=== PATIENT | female | born 1950 | race Caucasian/White ===

== ENCOUNTER 2019-06-20 13:20 | Outpatient (CLI) | payer MEDICARE, SELFPAY ==
--- NOTE | 2019-06-20 13:28 | USCV_ITS ---
Judith Wylie Age: 68 Gender: F : 1950 Exam Date: 06/20/2019 13:38 Ordering Phys: Unruly Kenyon MD ([email or web address]) Technologist: Emily Melendez Exam Location: [facility] [place] Indication: STENOSIS Risk Factors: Previous Vascular Surgery: Right Brachial BP: / Left Brachial BP: / Right Left Velocity (cm/s) Spectral Plaque Velocity (cm/s) Spectral Plaque Syst/Diast Broadening Syst/Diast Broadening 101.40/19.80 Prox CCA 101.40/ 23.20 80.50/ 19.80 Mid CCA 91.50 / 26.50 97.00/ 23.20 Distal CCA 91.50 / 30.90 108.10/30.90 Prox ICA 129.50/ 48.60 135.60/36.40 Mid ICA 138.50/ 43.20 146.60/41.90 Distal ICA 154.70/ 54.00 131.20 ECA 144.40 1.82 ICA/CCA 1.69 Antegrade Vertebral Antegrade 80.50/ 22.10 cm/s 91.70/ 23.40 cm/s Tri Subclavian Tri FINDINGS Moderate to heavy heterogeneous plaques at the bifurcation and internal carotid artery on the right side Moderate to heavy heterogeneous plaques of the left bifurcation and proximal internal carotid artery Antegrade flow in the vertebral arteries bilaterally Normal Doppler flow velocities in the external carotid arteries bilaterally Antegrade flow in the vertebral arteries bilaterally CONCLUSIONS Moderate to heavy heterogeneous plaques at the bifurcation and internal carotid artery on the left side with velocity elevation consistent with 50-79% stenosis. Moderate to heavy heterogeneous plaques at the bifurcation and internal carotid artery on the right side with velocity elevation consistent with 16-49% stenosis. Intimal thickening in the common carotid arteries bilaterally Compared to the study from 12/05/2018, there is some worsening of the stenosis on the right side, based on the flow velocity measurements Dr Pam Liu MD [facility] (Electronically Signed) Final Date: 20 June 2019 17:47 S
== END 2019-06-20 13:21 | disposition home or self-care (01) ==
LOC: US 13:22
PROVIDERS: Family Provider Electrodiagnostic Medicine; PCP Electrodiagnostic Medicine; Visit Provider Internal Medicine Cardiovascular Disease
DX: I65.23 Occlusion and stenosis of bilateral carotid arteries (principal)
CPT/HCPCS: 93880

== ENCOUNTER 2019-11-12 15:21 | Outpatient (CLI) | payer MEDICARE, SELFPAY ==
--- NOTE | 2019-11-12 15:28 | XR_ITS ---
WS: [id number] Bone mineral density performed on a [facility], 11/12/2019 Clinical data: [facility] Findings: The first 4 lumbar vertebral bodies demonstrated the bone mineral density of 0.922 g/cm2 for a young adult T score of -2.1. Measurement of the left hip reveals a bone mineral density of 0.748 g/cm2 with a young adult T score of -2.1. Measurement of the right hip reveals the bone mineral density of 0.783 g/cm2 for young adult T score of -1.8. XR/XR DEXA axial skeleton* [id number] Impression: Osteopenia of the lumbar spine and both hips.
== END 2019-11-12 15:22 | disposition home or self-care (01) ==
LOC: RADWPI 15:25
PROVIDERS: Family Provider Electrodiagnostic Medicine; PCP Electrodiagnostic Medicine; Visit Provider Electrodiagnostic Medicine
DX: Z13.820 Encounter for screening for osteoporosis (principal); M85.89 Other specified disorders of bone density and structure, multiple sites
CPT/HCPCS: 77080

== ENCOUNTER 2019-12-01 09:01 | Outpatient (CLI) | payer MEDICARE, SELFPAY ==
--- NOTE | 2019-12-01 09:30 | USCV_ITS ---
Judith Wylie Age: 69 Gender: F : 1950 Exam Date: 12/01/2019 09:17 Ordering Phys: Unruly Kenyon MD ([email or web address]) Technologist: Deann Espino Exam Location: [facility] [place] Indication: 6 MONTH F/U Risk Factors: Previous Vascular Surgery: None Right Brachial BP: / Left Brachial BP: / Right Left Velocity (cm/s) Spectral Plaque Velocity (cm/s) Spectral Plaque Syst/Diast Broadening Syst/Diast Broadening 84.00/ 10.10 Prox CCA 99.50 / 20.30 84.00/ 15.20 Mid CCA 85.60 / 21.40 69.50/ 12.00 Distal CCA 82.40 / 16.10 92.20/ 19.75 Prox ICA 125.25/ 30.75 120.70/29.70 Mid ICA 117.00/ 32.90 100.75/26.10 Distal ICA 122.30/ 34.20 101.40 ECA 114.50 1.44 ICA/CCA 1.50 Antegrade Vertebral Antegrade 69.50/ 13.30 cm/s 74.90/ 18.40 cm/s Tri Subclavian Bi 75.50 99.40 FINDINGS Comparison:. 06/20/19. Mixture of calcified and noncalcified plaque in the bifurcations. Mild turbulence and elevation of velocity. No progression sinc e the prior exam CONCLUSIONS Bilateral ICA stenosis less than 50%. Heterogenous plaque at the bifurcations. Dr. Anabel Chen DO (Electronically Signed) Final Date: 01 December 2019 16:14 S
== END 2019-12-01 09:02 | disposition home or self-care (01) ==
PROVIDERS: Family Provider Electrodiagnostic Medicine; PCP Electrodiagnostic Medicine; Visit Provider Internal Medicine Cardiovascular Disease
DX: I65.23 Occlusion and stenosis of bilateral carotid arteries (principal)
CPT/HCPCS: 93880

== ENCOUNTER → 2019-12-13 12:51 | Outpatient (BNVA) | payer MEDICARE, SELFPAY | PROVIDERS: Family Provider Electrodiagnostic Medicine; PCP Electrodiagnostic Medicine; Visit Provider Nurse Practitioner | DX: R05 Cough (principal); J06.9 Acute upper respiratory infection, unspecified; Z68.20 Body mass index [BMI] 20.0-20.9, adult; F17.211 Nicotine dependence, cigarettes, in remission | CPT/HCPCS: 87635 ==

== ENCOUNTER 2020-11-16 14:15 | Outpatient (CLI) | payer MEDICARE, SELFPAY ==
--- NOTE | 2020-11-16 14:26 | XR_ITS ---
WS: [id number] Chest 2 views, 11/16/2020 Clinical Data: CRONIC COUGH Comparison: Portable chest, 06/26/2018. Findings: The aortic arch shows calcification with minimal tortuosity. The pulmonary vascularity is n ot increased. No pneumonia or pneumothorax is seen. The heart is normal. The pulmonary vascularity is not increased. XR/XR chest 2V* [id number] Impression: Atherosclerosis.
== END 2020-11-16 14:16 | disposition home or self-care (01) ==
LOC: RAD 14:23
PROVIDERS: PCP Electrodiagnostic Medicine; Visit Provider Electrodiagnostic Medicine
DX: R05 Cough (principal); J20.9 Acute bronchitis, unspecified; G47.33 Obstructive sleep apnea (adult) (pediatric); I70.90 Unspecified atherosclerosis
CPT/HCPCS: 71046

== ENCOUNTER → 2021-04-01 11:08 | Outpatient (BNVA) | payer MEDICARE, SELFPAY | PROVIDERS: PCP Electrodiagnostic Medicine; Visit Provider Family Medicine Adult Medicine | DX: N39.0 Urinary tract infection, site not specified (principal) | CPT/HCPCS: 81000 ==

== ENCOUNTER 2021-09-06 10:31 | Outpatient (CLI) | payer MEDICARE, SELFPAY ==
--- NOTE | 2021-09-06 10:46 | MM_ITS ---
WS: [id number] BILATERAL SCREENING DIGITAL BREAST TOMOSYNTHESIS MAMMOGRAM WITH CAD HISTORY: SCREENING COMPARISON: 04/03/2019 Bilateral CC and MLO views with tomosynthesis and synthetic mammography submitted. Computer aided det ection analyzed. Breast composition: There are scattered areas of fibroglandular density. No suspicious masses, microc alcifications or architectural distortion. Benign calcifications in each breast. MM/[place] [id number] IMPRESSION: BI-RADS: 2-Benign FOLLOW UP: 1 Year Follow-up
== END 2021-09-06 10:32 | disposition home or self-care (01) ==
PROVIDERS: PCP Electrodiagnostic Medicine; Visit Provider Electrodiagnostic Medicine
DX: Z12.31 Encounter for screening mammogram for malignant neoplasm of breast (principal)
CPT/HCPCS: 77063; 77067

== ENCOUNTER → 2021-11-04 10:41 | Outpatient (BNVA) | payer MEDICARE, SELFPAY | PROVIDERS: PCP Electrodiagnostic Medicine; Visit Provider Internal Medicine Cardiovascular Disease | DX: I25.10 Atherosclerotic heart disease of native coronary artery without angina pectoris (principal); I25.2 Old myocardial infarction; G47.33 Obstructive sleep apnea (adult) (pediatric); I10 Essential (primary) hypertension; E78.5 Hyperlipidemia, unspecified; E11.9 Type 2 diabetes mellitus without complications; Z79.84 Long term (current) use of oral hypoglycemic drugs; M79.7 Fibromyalgia; I65.23 Occlusion and stenosis of bilateral carotid arteries; Z95.820 Peripheral vascular angioplasty status with implants and grafts; Z87.891 Personal history of nicotine dependence | CPT/HCPCS: 99213; 99214 ==

== ENCOUNTER 2022-03-10 08:39 | Outpatient (CLI) | payer MEDICARE, SELFPAY ==
--- NOTE | 2022-03-10 09:15 | USCV_ITS ---
Judith Wylie Age: 71 Gender: F : 1950 Exam Date: 03/10/2022 08:52 Ordering Phys: Unruly Kenyon MD ([email or web address]) Technologist: CATARINA Exam Location: [facility] [place] Indication: CAROTID STENOSIS. Risk Factors: Previous Vascular Surgery: Right Brachial BP: / Left Brachial BP: / Right Left Velocity (cm/s) Spectral Plaque Velocity (cm/s) Spectral Plaque Syst/Diast Broadening Syst/Diast Broadening 51.30/ 8.50 Prox CCA 72.20 / 14.00 65.70/ 16.00 Mid CCA 85.40 / 17.10 52.30/ 13.40 Distal CCA 67.60 / 17.10 70.10/ 18.80 Prox ICA 82.00 / 19.70 65.70/ 22.60 Mid ICA 111.40/ 30.90 90.60/ 27.30 Distal ICA 94.60 / 32.50 131.20 ECA 72.60 1.38 ICA/CCA 1.30 Vertebral 54.60/ 12.50 cm/s 51.30/ 12.40 cm/s Subclavian 82.30 91.70 FINDINGS Comparison:. 12/01/19. Diffuse bilateral scattered calcified plaque and intimal thickening throughout the common carotid arteries and extending through the bifurcation. Moderate irregular plaque in the bifurcations with only mild stenosis and turbulence. Antegrade vertebral arteries. CONCLUSIONS Bilateral ICA stenosis less than 50%. Mild progression of carotid atherosclerosis. Dr. Anabel Chen DO (Electronically Signed) Final Date: 10 March 2022 09:23 S
== END 2022-03-10 08:40 | disposition home or self-care (01) ==
PROVIDERS: PCP Electrodiagnostic Medicine; Visit Provider Internal Medicine Cardiovascular Disease
DX: I65.23 Occlusion and stenosis of bilateral carotid arteries (principal)
CPT/HCPCS: 93880

== ENCOUNTER 2022-05-10 10:36 | Outpatient (CLI) | payer MEDICARE, SELFPAY | END 2022-05-10 10:37 | disposition home or self-care (01) | PROVIDERS: PCP Electrodiagnostic Medicine; Visit Provider Electrodiagnostic Medicine | DX: J44.9 Chronic obstructive pulmonary disease, unspecified (principal) | CPT/HCPCS: 94010; 94726; 94729 ==

== ENCOUNTER 2022-05-22 09:39 | Outpatient (CLI) | payer MEDICARE, SELFPAY ==
--- NOTE | 2022-05-22 | CT_ITS ---
WS: [id number] LDCT LUNG CANCER SCREENING TECHNIQUE: Noncontrast CT of the chest with coronal and sagittal reformatted images. CLINICAL INFORMATION: Z87.891 COMPARISON: CT 2017 DLP: 81.77 mGy.cm DIvol: Mean CTDIvol: 1.60 (mGy) All CT scans at [facility] use at least one of these dose optimization techniques: automat ed exposure control; mA and/or kV adjustment per patient size (includes targeted exams where dose is matched to clinical indication); or iterative reconstruction. FINDINGS: Normal caliber thoracic aorta. Aortic calcification. Coronary calcification. Calcified anterior media stinal and subcarinal lymph nodes. Slightly heterogeneous thyroid. No axillary lymphadenopathy. Splen ic granulomas. Hepatic granulomas. Small esophageal hiatal hernia. Adrenal glands are normal. Small h azy opacity RIGHT upper lobe measuring 5 mm. Small noncalcified nodule RIGHT lower lobe measuring 3 mm. No other suspicious pulmonary parenchymal abnormalities. CT/CT lung screening [id number] IMPRESSION: LUNG-RADS: 2-Benign Appearance or Behavior FOLLOW UP: 12 Month: Continue annual screening with LDCT
== END 2022-05-22 09:40 | disposition home or self-care (01) ==
PROVIDERS: PCP Electrodiagnostic Medicine; Visit Provider Electrodiagnostic Medicine
DX: Z09 Encounter for follow-up examination after completed treatment for conditions other than malignant neoplasm (principal); Z87.891 Personal history of nicotine dependence
CPT/HCPCS: 71271

== ENCOUNTER → 2022-12-04 15:55 | Outpatient (BNVA) | payer MEDICARE, SELFPAY | PROVIDERS: PCP Electrodiagnostic Medicine; Visit Provider Internal Medicine Cardiovascular Disease | DX: I10 Essential (primary) hypertension (principal) | CPT/HCPCS: 93005 ==

== ENCOUNTER 2023-08-30 14:54 | Outpatient (CLI) | payer MEDICARE, SELFPAY ==
--- NOTE | 2023-08-30 15:01 | MR_ITS ---
WS: [id number] MRI LEFT KNEE NONCONTRAST TECHNIQUE: Axial PD, coronal PD fat sat, coronal PD, sagittal PD, and sagittal PD fat-sat images obta ined. CLINICAL INFORMATION: PAIN OF LEFT KNEE JOINT COMPARISON: None. FINDINGS: Edema in the anteromedial tibial plateau with small visualized fracture cleft extending to the articular surface compatible with small tibial plateau fracture. Depression measuring 2.1 mm. Ass ociated contusion. Distal quadriceps and patella tendons are intact. Normal ACL and PCL. Small suprapatellar effusion. A dvanced joint space narrowing medial joint compartment with subchondral edema and grade IV chondromal acia. Small amount of fluid and edema along the superficial and deep fibers of the medial collateral ligament compatible with grade 1-2 injury. Distal MCL appears intact. Normal lateral collateral ligam ent. Fibular head is normal in appearance. Blunting with complex horizontal tear involving the medial meniscus extending to the periphery of the meniscal root. Peripheral extrusion of the medial meniscus. Advanced chondromalacia patella. MR/MR knee LT wo con* [id number] IMPRESSION: 1. Complex horizontal tear involving the posterior horn medial meniscus extend ing to the meniscal root and peripheral articular surface. Peripheral extrusion of the medial meniscus. 2. Grade 1-2 injury medial collateral ligament. 3. Small to moderate suprapatellar effusion. 4. Small minimally depressed fracture with contusion involving the anteromedia l tibial plateau with a small visualized fracture cleft extending to the articu lar surface. Minimal depression laterally measuring 2.1 mm. 5. Advanced chondromalacia patella. 6. Advanced degenerative narrowing medial joint compartment with subchondral e marline and grade IV chondromalacia. 7. ACL and PCL appear intact. Outbridge grading: grade IV: full-thickness cartilage loss with underlying bone reactive changes
== END 2023-08-30 14:55 | disposition home or self-care (01) ==
LOC: RAD 14:55
PROVIDERS: PCP Electrodiagnostic Medicine; Visit Provider Electrodiagnostic Medicine
DX: M25.562 Pain in left knee (principal); S83.232A Complex tear of medial meniscus, current injury, left knee, initial encounter; M25.462 Effusion, left knee; M22.42 Chondromalacia patellae, left knee; X58.XXXA Exposure to other specified factors, initial encounter
CPT/HCPCS: 73721

== ENCOUNTER 2023-10-25 11:36 | Outpatient (CLI) | payer MEDICARE, SELFPAY | END 2023-10-25 11:37 | disposition home or self-care (01) | LOC: SPT 11:36 | PROVIDERS: PCP Electrodiagnostic Medicine; Visit Provider Physician Assistant | DX: Z01.818 Encounter for other preprocedural examination (principal); E11.9 Type 2 diabetes mellitus without complications | CPT/HCPCS: 97760; L1851 ==

== ENCOUNTER 2023-12-05 07:59 | Outpatient (CLI) | payer MEDICARE, SELFPAY ==
[2023-12-05 08:18] LABS: Charge for UA Resulting for Rev
[2023-12-05 08:20] LABS: Basophils # 0.1 10^3/uL (0.0-0.1); Eosinophils # 0.2 10^3/uL (0.0-0.8); Eosinophils % 2.5 %; Hematocrit 36.3 % (36-47); Lymphocytes # 1.9 10^3/uL (0.8-4.8); Lymphocytes % 22.9 %; Mean Corpuscular HGB Conc 31.4 g/dL (30-55); Mean Corpuscular Hemoglobin 26.1 pg (27-33); Mean Corpuscular Volume 83.1 fl (85-98); Mean Platelet Volume 11.2 fL (7.4-10.4); Monocytes # 0.8 10^3/uL (0.2-0.9); Monocytes % 9.4 %; Neutrophils # 5.37 10^3/uL (1.8-7.7); Neutrophils % 64.1 %; Nucleated Red Blood Cells % 0 %; Platelet Count 228 10^3/cmm (157-399); Red Blood Count 4.37 10^6/uL (3.85-5.65); Red Cell Distribution Width 15.3 % (12.1-15.1); White Blood Count 8.38 10^3/uL (3.29-11.43)
[2023-12-05 08:40] LABS: Alanine Aminotransferase 6 U/L (0-33); Albumin Level 4.3 g/dL (3.5-5.2); Alkaline Phosphatase 98 U/L (35-105); Aspartate Amino Transferase 19 U/L (0-32); Blood Urea Nitrogen 13 mg/dL (8-23); Calcium 9.5 mg/dL (8.5-10.5); Carbon Dioxide 23 mmol/L (22-29); Chloride 105 mmol/L (98-107); Globulin 2.8 g/dL (1.3-4.6); Glucose 142 mg/dL (65-115); Osmolality Calculated 297 mOsm/kg (285-295); Sodium 142 mmol/L (136-145); Total Bilirubin 0.3 mg/dL (0.15-1.2); Total Protein 7.1 g/dL (6.6-8.7)
[2023-12-05 08:42] LABS: Estmated Average Glucose 134; Hemoglobin A1C 6.3 % (4.0-6.0)
[2023-12-05 09:26] LABS: Bilirubin Urine Negative (Negative); Blood Urine Negative (Negative); Glucose Urine UA Negative (Normal); Ketones Urine Negative (Negative); Leukocyte Esterase Urine 2+ (Negative); Nitrate Urine Negative (Negative); Protein Urine Negative (Negative); Specific Gravity, Urine 1.012 (1.005-1.030); Urine Appearance Clear (CLEAR); Urine Color Yellow (Yellow)
[2023-12-05 09:29] LABS: Bacteria Urine None Seen /hpf; Hyaline Casts Urine 0-4 /lpf; RBC Urine 0-2 /hpf (0-2)
[2023-12-05 09:47] LABS: Add Urine Culture? No
== END 2023-12-05 08:00 | disposition home or self-care (01) ==
LOC: LAB 08:01
PROVIDERS: PCP Electrodiagnostic Medicine; Visit Provider Physician Assistant
DX: E11.9 Type 2 diabetes mellitus without complications (principal); Z01.818 Encounter for other preprocedural examination
CPT/HCPCS: 80053; 81003; 81015; 83036; 85025

== ENCOUNTER → 2023-12-18 09:13 | Outpatient (BNVA) | payer MEDICARE, SELFPAY | PROVIDERS: PCP Electrodiagnostic Medicine; Visit Provider Family Medicine | DX: Z01.818 Encounter for other preprocedural examination (principal) | CPT/HCPCS: 93005 ==

== ENCOUNTER 2023-12-21 06:18 | Outpatient (CLI) | payer MEDICARE, SELFPAY ==
--- NOTE | 2023-12-21 06:41 | ECG_ITS ---
[facility] Test Date: 2023-12-21 Pat Name: Judith Wylie Department: Room: Gender: Female Development Assistant: Deann Ricci : 1950 Requested By: Alexa King Order Number: [id number] Jaelyn MD: Pam Liu M.D. Interpretive Statements NAME OF STUDY: LEXISCAN SESTAMIBI STRESS TEST INDICATION: Exertional CP, EXERCISE MIBI ATTEMPTED ORDERED, UNABLE TO MEET TARGET HR PROCEDURE: At the baseline, the EKG revealed normal sinus rhythm with poor R wave progression. Possible old anteroseptal LA. The baseline heart was 66 bpm with a blood pressue of 159/67 mm of Hg Lexiscan was infused over a period of 20 seconds. A total of 0.4 milligrams of Lexiscan was infused. The stress phase was continued for a total of 5 minutes. Heart rate at the end of the stress phase was 93 bpm with a blood pressure 169/67 mm of Hg. The EKG at the peak infusion revealed no significant changes. Sestamibi was injected 20 seconds after the Lexiscan infusion. Heart rate at the end of the recovery phase was 74 bpm with a blood pressure of 167/70 mm of Hg. CONCLUSION: 1. No significant EKG changes with the LexiScan infusion 2. No LexiScan induced chest pain or cardiac arrhythmia 3. Normal blood pressure and heart rate response 4. Sestamibi/sestamibi perfusion scan pending; see separate report. Electronically Signed On 01-02-2024 16:40:16 CDT by Pam Liu M.D. [id number]
--- NOTE | 2023-12-21 06:42 | NMCV_ITS ---
NM jorge perf SPECT r/s* [id number] Judith Wylie Age: 73 Gender: F : 1950 Exam Date: 12/21/2023 07:15 Ordering Phys: Alexa King MD Technologist: NOREEN Dennis Exam Location: [facility] Indications: Pre-op clearance, CP, SOB STRESS TEST Please [facility] IMAGE PROTOCOL Rest/Stress 1 Lexiscan Day Radiopharmaceutical Dose (mCi) Administration Site Administered by Rest: Tc-99m 10.3 IV NOREEN Dennis Sestamibi Stress:Tc-99m 32.3 IV NOREEN Dennis Sestamibi Rest: 21-Dec-2023 60 Discovery 630 Stress: 21-Dec-2023 30 Discovery 630 0.4mg Lexiscan. Images obtained in supine and prone position. SPECT RESULTS Technical Quality: Good Raw Data Analysis: Subdiaphragmatic activity Image Corrections: No attenuation or motion correction applied Summed Stress Score: 0 Summed Rest Score: 0 Summed Difference Score: 0 PERFUSION FINDINGS New uniform myocardial tracer uptake with no significant perfusion abnormalities FUNCTIONAL RESULTS (calculated via Gated SPECT) Stress Image LV EF (%): 67 Stress EDV (mL):72 TID: 0.72 Stress ESV (mL):24 FUNCTIONAL FINDINGS: Segmental wall motion analysis revealing no gross wall motion abnormalities IMPRESSIONS 1. Myocardial perfusion imaging revealing uniform myocardial tracer uptake with no Perfusion normalities. 2. Normal LV ejection fraction of 67%. 3. LV wall motion analysis revealing no gross wall motion abnormalities. 4. Normal LV volume Low probability for coronary ischemia, based on the above findings No similar previous studies are available for comparison.. Dr Pam Liu MD [facility] (Electronically Signed) Final Date: 21 December 2023 11:25 S
[2023-12-21 06:43] VITALS: BMI 20.5
--- NOTE | 2023-12-21 08:19 | PC.NURSE ---
Pt unable to meet target HR on treadmill , maximal effort achieved. Dr. Liu notified via phone and received telephone orders to switch to Lexiscan mibi.
[2023-12-21] MEDS: regadenoson 0.4 Mg/5 ml Syringe IVP (08:28)
[2023-12-21] MEDS: aminophylline 25 mg/mL SDV 10 mL IVP (08:38)
[2023-12-21 08:40] VITALS: BP 167/70; PULSE 74
== END 2023-12-21 06:19 | disposition home or self-care (01) ==
PROVIDERS: PCP Electrodiagnostic Medicine; Visit Provider Family Medicine
DX: Z01.818 Encounter for other preprocedural examination (principal); R07.9 Chest pain, unspecified; R06.02 Shortness of breath
CPT/HCPCS: 36415; 78452; 81003; 93017; 96374; 96375; A9500; J0280; J2785

== ENCOUNTER 2023-12-24 07:48 | Outpatient (CLI) | payer MEDICARE, SELFPAY ==
--- NOTE | 2023-12-24 08:00 | CT_ITS ---
WS: [id number] CT LEFT knee, noncontrast HISTORY: M17.12 - Unilateral primary osteoarthritis, left knee TECHNIQUE: Protocol for [facility] total knee replacement has been obtained. This includes axial imaging th rough the LEFT hip, LEFT knee and LEFT ankle. DLP: 872.02 mGy.cm COMPARISON: Radiograph 10/25/2023 Pelvis: No destructive bone lesions. No fracture. Mild atherosclerosis femoral arteries. LEFT knee: Mild tricompartment narrowing, greatest involving the medial compartment no fractures. No bone lesions. LEFT ankle: Negative. CT/CT knee LT [facility] [id number] IMPRESSION: CT imaging provided for [facility] robotic total knee replacement.
== END 2023-12-24 07:49 | disposition home or self-care (01) ==
LOC: RAD 07:51
PROVIDERS: PCP Electrodiagnostic Medicine; Visit Provider Student in an Organized Health Care Education/Training Program
DX: M17.12 Unilateral primary osteoarthritis, left knee (principal); I70.202 Unspecified atherosclerosis of native arteries of extremities, left leg
CPT/HCPCS: 73700

== ENCOUNTER → 2023-12-25 12:41 | Outpatient (BNVA) | payer MEDICARE, SELFPAY | PROVIDERS: PCP Electrodiagnostic Medicine; Visit Provider Student in an Organized Health Care Education/Training Program | DX: M17.12 Unilateral primary osteoarthritis, left knee (principal) | CPT/HCPCS: 99214 ==

== ENCOUNTER 2024-01-07 14:17 | Observation (INO) | payer MEDICARE, SELFPAY ==
[2024-01-07] VITALS (13 sets, daily range): BP systolic 112–192; BP diastolic 51–86; PULSE 65–74; RESP 10–18; TEMP 36.1–36.8; O2SAT 95–99; BMI 20.3
--- NOTE | 2024-01-07 10:02 | W.PM.OPSUD ---
Surgery/Procedure H&P Update DATE OF PROCEDURE: January 07, 2024 DATE H&P PERFORMED: 12/25/23 H&P UPDATE INFORMATION: I have reviewed H&P completed within last 30 days, I have examined patient prior to procedure and No changes to prior documentation PREOP DIAGNOSIS: Left knee degenerative joint disease PRIMARY INDICATION FOR PROCEDURE: Left knee degenerative joint disease PLANNED PROCEDURE: Operation Date: 01/07/24 12:10 Proposed Procedures p Torsten Robot Total Knee Arthroplasty(Left) - Wm Gutierrez DO
[2024-01-07 10:32] LABS: Basophils # 0.1 10^3/uL (0.0-0.1); Basophils % 1.4 %; Eosinophils # 0.2 10^3/uL (0.0-0.8); Eosinophils % 3.8 %; Hematocrit 35.7 % (36-47); Lymphocytes # 1.6 10^3/uL (0.8-4.8); Lymphocytes % 28.3 %; Mean Corpuscular HGB Conc 32.2 g/dL (30-55); Mean Corpuscular Volume 80.8 fl (85-98); Mean Platelet Volume 11.4 fL (7.4-10.4); Monocytes # 0.5 10^3/uL (0.2-0.9); Monocytes % 9.4 %; Neutrophils # 3.14 10^3/uL (1.8-7.7); Neutrophils % 56.9 %; Nucleated Red Blood Cells % 0 %; Platelet Count 230 10^3/cmm (157-399); Red Blood Count 4.42 10^6/uL (3.85-5.65); Red Cell Distribution Width 15.9 % (12.1-15.1); White Blood Count 5.52 10^3/uL (3.29-11.43)
[2024-01-07] MEDS: acetaminophen 1,000 MG/100 ML PIGGYBACK 400 MG IV ×3 (10:35→23:00)
[2024-01-07] MEDS: ketorolac 30 mg/mL INJ IVP (10:40)
[2024-01-07] MEDS: lactated ringers 500 ML IV (10:43)
--- NOTE | 2024-01-07 10:55 | P.ANESASSM_ITS ---
Pre-Anesthetic Assessment Height/Weight: Height 1.6 m Weight 52.163 kg Temp Pulse Resp BP Pulse Ox O2 Del Method 97.7 F 65 16 189/84 98 Room Air 01/07/24 10:10 01/07/24 10:10 01/07/24 10:10 01/07/24 10:10 01/07/24 10:10 01/07/24 10:10 Preop Diagnosis: Left knee degenerative joint disease Operation Date: 01/07/24 12:10 Proposed Procedures p Torsten Robot Total Knee Arthroplasty(Left) - Wm Gutierrez DO Familial anesthetic complications: None Was Beta Anuj taken within 24 hours: N/A Was Clonidine taken within 24 hours: N/A Last intake: Intake Last Liquid Date 01/06/24 Last Liquid Time 23:00 Last Solid Date 01/06/24 Last Solid Time 18:30 Social No alcohol and No tobacco Exam alert, oriented x 3, clear to auscultation bilaterally and regular rate & rhythm Pulmonary Sleep Apnea CV/HEM Stable Angina (recent negative stress test), Coronary Artery Disease, Hypertension and Myocardial Infarction (stents in 2006) GI Gastroesophageal Reflux Disease Metabolic Hyperlipidemia [facility] [place] Fibromyalgia Anesthetic Plan ASA status: 3 Anesthesia: Regional (specify below) Other: Spinal + Adductor Risk of > 500 ml blood loss (7ml/kg in children): No Medications/Allergies Home Medications Medication Instructions Recorded Confirmed Last Taken Type omeprazole 40 mg capsule,delayed 40 mg PO DAILY 06/24/19 01/07/24 01/06/24 History release rosuvastatin 20 mg tablet 20 mg PO DAILY 06/24/19 01/04/24 01/04/24 History aspirin 325 mg tablet 325 mg PO DAILY 05/25/20 01/04/24 01/01/24 History methimazole 5 mg tablet 2.5 mg PO Q48H 11/22/20 01/07/24 01/05/24 History metformin 500 mg tablet 500 mg PO QPM 04/01/21 01/07/24 01/05/24 History losartan 50 mg tablet 50 mg PO DAILY #90 tabs 02/21/23 01/07/24 01/06/24 Rx medial left knee doll dresser #1 ea 10/25/23 10/25/23 Unknown Rx medial left doll dresser brace #1 ea 10/25/23 10/25/23 Unknown Rx meloxicam 15 mg tablet 15 mg PO DAILY 01/04/24 01/07/24 12/25/23 History Allergies Allergy/AdvReac Type Severity Reaction Status Date / Time sulfamethoxazole Allergy Unknown ALGY-Swell Verified 12/25/23 12:58 [From Bactrim] Lip/Tongue/Throat trimethoprim [From Bactrim] Allergy Unknown ALGY-Swell Verified 12/25/23 12:58 Lip/Tongue/Throat [facility] Anesthesia Medical History Urinary tract infection Osteoarth NOS-up/arm Myocardial infarction ASHD (arteriosclerotic heart disease) HTN (hypertension) Dyslipidemia Diabetes Fibromyalgia Carotid stenosis, bilateral ZAYNAB (obstructive sleep apnea) Surgical History S/P angioplasty with stent Family History Brother CAD (coronary artery disease) Diabetes Sister CAD (coronary artery disease) Cancer CERVICAL Diabetes Hypertension Father CAD (coronary artery disease) Mother CAD (coronary artery disease) Stroke Diabetes Hypertension Grandfather Diabetes PATERNAL Grandmother Diabetes MATERNAL Social History Smoking and tobacco/nicotine status: never used tobacco/nicotine Household members: spouse Marital status: Current gender identity: Female Data Anesthesia 01/07/24 10:16 01/07/24 10:16 Short CBC 01/07/24 Range/Units 10:16 WBC 5.52 (3.29-11.43) 10^3/uL Hgb 11.50 (11.27-16.99) g/dL Hct 35.7 L (36-47) % MCV 80.8 L (85-98) fl Plt Count 230 (157-399) 10^3/cmm Neut % (Auto) 56.9 % Neut # (Auto) 3.14 (1.8-7.7) 10^3/uL Cardiac Studies: 2 Sestamibi Stress Test (Cardiology) 12/20
[2024-01-07 10:56] LABS: Anion Gap 17.2 (5-19); Blood Urea Nitrogen 11 mg/dL (8-23); Calcium 9.7 mg/dL (8.5-10.5); Carbon Dioxide 24 mmol/L (22-29); Chloride 105 mmol/L (98-107); Creatinine Clr Calc Pharmacy 52.4868; Glucose 117 mg/dL (65-115); Osmolality Calculated 294 mOsm/kg (285-295); Potassium 4.2 mmol/L (3.5-5.1); Sodium 142 mmol/L (136-145)
--- NOTE | 2024-01-07 11:12 | ANES.PROC ---
Anesthesia Procedures Procedure/Date: 01/07/24 Nerve Block ^: Nerve Block 1: Main Anesthesia: spinal anesthesia block Time Out Performed: Yes Consent: requested by attending/covering physician, from patient, from other, risks and benefits reviewed and patient agrees to proceed Nerve block location: adductor canal (L) Anesthesia monitors applied: pulse oximetry, EKG, BP cuff and oxygen Nerve block position: supine Anesthetic Used: ropivicaine 0.5% (20 ml) and with decadron (4 mg) Amount of anesthesia used (mL): 20 Ultrasound used to: recognize landmarks and visualize and ID femerol nerve Nerve Stimulator Used?: No Interscalene/Femoral BLK: 4 stimuplex 21 g needle used for position and inplane approach, visualize local anesthetic spread and no vascular puncture identified Injection: neg aspiration of heme Patient Tolerated Procedure: well and no complications Complications: none
[2024-01-07] MEDS: sodium chloride 0.9% 1,000 ML 30 ML IV (11:18)
[2024-01-07] MEDS: ceFAZolin 2,000 MG in sodium chloride 0.9% (plus) 50 ML 100 MG IV ×2 (11:33→20:40)
[2024-01-07] MEDS: tranexamic acid 1,000 mg/10mL SDV 1000 MG IV (12:02)
--- NOTE | 2024-01-07 12:18 | PC.NURSE ---
Dr aware of urine
[2024-01-07] MEDS: vancomycin 1,000 MG SDV 1000 MG XX (12:31)
[2024-01-07] MEDS: EPINEPHrine 1 mg/mL INJ XX (12:34)
[2024-01-07] MEDS: ROPivacaine 0.2% Premix 100 mL 200 MG INTRA-ARTI (12:34)
[2024-01-07] MEDS: tranexamic acid 1,000 mg/10mL SDV 1000 MG XX (12:34)
[2024-01-07] MEDS: ketorolac 30 mg/mL INJ XX (12:34)
[2024-01-07 13:13] LABS: Glucose Point of Care 110 mg/dL (70-110)
--- NOTE | 2024-01-07 13:34 | PM.OP ---
Operative Report Date of procedure: January 07, 2024 Surgeon: Wm Gutierrez DO Procedure: Preoperative diagnosis: Left knee degenerative joint disease Post-op diagnosis: Same Procedure done: Left total knee arthroplasty, cemented?robotic assisted Torsten Implants: Carrizozo triathlon size 3 femur CR cemented?left Rj triathlon size? 2 tibia universal baseplate cemented Rj triathlon symmetric patella size 27 mm Carrizozo triathlon polyethylene 9mm Surgeon: Wm Gutierrez DO Estimated blood?loss: 25 mL Tourniquet 54mins IV fluids: 1000 mL Urine output: 100 mL Complications: None Condition: stable Disposition: floor Brief History: Patient is a 73-year-old female with with chronic?left knee degenerative joint disease.? Patient has been worked up in the outpatient setting in the orthopedic office at this point time through shared decision making given? [id number] arthritis as well as failed conservative treatment, and pt would?like to proceed with a?left total knee arthroplasty.? Through shared decision making elected to proceed with surgical intervention for?left total knee arthroplasty.? We talked about continued conservative treatment and surgical intervention as far as the risk benefits complications alternatives surgical and nonsurgical treatment options.? At this point time understanding patient risks with surgery pt agrees to proceed with surgical intervention.? Once again? risk with surgery include but are not?limited to make it better make it worse blood clot, heart attack, stroke, on the table, infection, injury to nerves or vessels, persistent pain, arthrofibrosis, implant failure.? Understanding these risks patient agrees to proceed with surgical intervention consent was obtained in the office.? All questions answered. Procedure: Patient was seen and evaluated in the preoperative holding area.? Consent was reviewed and signed with patient with plan for?left total knee arthroplasty.? All questions answered.? Correct extremity marked.? Patient seen and evaluated by the anesthesia department and once cleared for surgery was taken back to the operative suite.? Patient was placed into a supine position on the OR table.? All bony prominences were well-padded.? Patient was appropriately secured to the bed.? Patient underwent anesthesia per the anesthesia department.? Patient received spinal anesthesia and? Pineda catheter was placed.? A nonsterile tourniquet was applied to the?left thigh.? At this point in time a final timeout performed.? Patient received appropriate preoperative antibiotics and TXA. Next the?left?lower extremity was then prepped and draped in standard orthopedic fashion. Esmarch tourniquet was used exsanguinate the?left?lower extremity.? Tourniquet was insufflated to 250 mmHg. A standard anterior incision was made over midline of the knee.? Sharp scalpel excision through skin and subcutaneous tissue full-thickness skin flaps were made.? Fascia was elevated off of the extensor retinaculum was stable with medial parapatellar arthrotomy was then made.? The performed standard sequential releases..? Immediately on entry into the joint patient was found to have severe eburnated bone and tricompartmental arthritic changes noted.? With significant osteophyte formation.? Next the the patella was then stuffed and the knee was then flexed.?? Soheila was placed superiorly around the anterior aspect of the femur this was freed of synovium and I subsequently then placed by 2 femur pins to establish my femur arrays for the Torsten robot.? These were then placed bicortically and? femur array was then appropriately secured with appropriate visualization.? Next attention was turned towards the tibial rays.? These were then drilled sequentially bicortically in parallel fashion and intraincisional.? I then placed my guide as well as my tibial array on in place.? This was appropriately secured and had excellent visualization with the Torsten robot.? Next the tibial checkpoint as well as femur checkpoint were then placed.? At this point time I then subsequently established my head center as well as my medial?lateral malleoli as well as my checkpoints.? Next utilizing standard Torsten technology I then mapped out the appropriate points and confirmation points around the femur as well as the tibia in standard fashion.? Once this was then done I then removed all osteophytes in preparation for dynamic testing.? All osteophytes were removed as well as I removed the ACL and the PCL was excised due to its significant tearing and degeneration noted.? At this point time the knee was brought into full extension and we performed our standard evaluation of our gap balancing stressing his?ligaments and extension as well as flexion appropriate adjustments were made to have appropriate gap balancing in both flexion and extension.? This plan for final counts.? We get a preoperative plan evaluating our implants which was a size 3 femur and a size 2 tibia.? Next we brought in the Torsten robot and sequentially made our femur cuts.? All excess bony cuts were then removed.? Finally we made our tibial cut.? Once this was done a standard PCL retractor was then placed into this position I excised the medial and?lateral meniscus.? The tibial cut was then subsequently removed all excess bony debris was removed.? I then utilized a?lamina logging worker and remove the posterior osteophytes.? At this point time sized the tibia and confirmed this was a size 2.? I utilized our blunt probe to establish rotation of tibial implant.? Once this was done I then placed my tibia size 2 trial in appropriate position and then subsequently placed tibial pins to hold this into place placed a size 9 mm poly as well as a size 3 femur which was appropriately impacted in place knee was then subsequently brought into extension. Trials were then assessed,? this was stable with varus valgus stress in extension however still had a slight flexion contracture and tight in extension and was symmetrically balanced on flexion with appropriate symmetrical translation that was smooth. At this point in time I elected to take an additional millimeter and a half off on my distal femur resection to help balance the extension gap. This was readjusted and recalibrated on the [employer] robotic assisted I then subsequently resected planned additional distal femur resection as well as redid all 4 of my femur cuts to accommodate for the implant. We did also perform a posterior capsular release controlled with a Avina elevator along the posterior aspect of the proximal tibia. Then I subsequently retrialed the size 3 femur, size 2 tibia, and a 9 poly and was able to achieve full extension stable varus valgus stress as well as symmetrically balanced flexion gap with no evidence of instability and had appropriate symmetrical translation. ? At this point I was satisfied with these implants these were then verified and opened on the back table size 2 tibia, size 3 femur,? size 9 mm polythickness.? We did confirm appropriate gap balancing and stresses as well as alignment utilizing? [employer] and were satisfied with this plan.? ?At this point time with my trials in place I then towel clip the patella everted this made appropriate measurements subsequently utilizing freehand technique performed by patellar resurfacing this was confirmed to be appropriate resection and subsequently sized to be a 27 mm symmetric.? My drill peg guides were then clamped and appropriate position and appropriate position in the patella for appropriate tracking and parallel with the joint.? Pegs were drilled trial implant was placed and the knee was then subsequently ranged and found to have excellent patellar tracking.? Femur pegs were then drilled.? All checkpoints as well as guidepins and arrays were removed and appropriate counts made.?Satisfied with our tibial placement rotation I then utilized the keel punch and prepped the tibia.? At this point time all of our trial implants were removed.? The wound bed? was thoroughly irrigated and dried and prepped for cementation.? Cement was mixed on the back table.? Once cement was ready this was then covered onto the tibia and the tibial baseplate was then impacted and all excess cement was removed.? Next the polyethylene was then impacted into place on the tibial baseplate.? Next cement was placed onto the femur as well as under the femur implants and impacted in to place and all excess cement was extruded and removed.? Knee was taken into full extension? to clear all excess cement was removed.? Warm saline was placed over the joint.? I then towel clip patella and dried for cementation. cemented the patella into place.? This was all clamped and the cement was allowed to cure.? Thorough irrigation performed with pulse?lavage.? I then placed my periarticular injection while the cement was curing.? Once cured the knee was taken through range of motion and had excellent stability and gaps were balanced in flexion and extension.? Tourniquet was then deflated. hemostasis satisfactory with electrocautery.? Vancomycin powder was placed within the wound bed for antibiotic infection prophylaxis. Next I then subsequently closed the capsule with Ethibond suture as well as a running strata fix suture.? Knee was then taken through range of motion 30 times.? Next the skin was then closed in?layered fashion of running stratifix sutures of deep and subcutenous tissue and skin.? ?closed in flexion and patient is thin frail skin with no significant subcutaneous layer as a result I elected to utilize sandrita for skin. I then placed jennifer dressing over the incision site. With ABDs soft roll and Ibrahima wrap.? Patient was then awakened from anesthesia and taken to PACU in stable condition. Disposition: Patient taken to PACU in stable condition will be admitted to the floor for pain control PT/OT weight-bear as tolerated?left?lower extremity dressing changes as needed, DVT prophylaxis. Pain control. Patient will receive appropriate postoperative antibiotics. patient will be seen today by the internal medicine team for medical management.? Patient will follow up with the office in 2 weeks.? Patient understands agrees with current plan.? All questions answered.
--- NOTE | 2024-01-07 13:37 | XR_ITS ---
WS: [id number] XR knee LT 1-2V 59871 REASON FOR EXAM: post L TKA FINDINGS: Total left knee arthroplasty. Components of the prosthesis are intact and in proper position and alignment. No focal bone abnormality. XR/XR knee LT 1-2V 92113 IMPRESSION: Total left knee arthroplasty without abnormality.
--- NOTE | 2024-01-07 13:53 | W.PM.BPON ---
Date of Procedure: [January 07, 2024] Surgeon: [Dr. Gutierrez DO] Right Of Way Cutter(s): [Jovanni Gutierrez PA-C] Procedure(s) performed: [Left total knee arthroplasty with Torsten robotic assist] Findings of the procedure(s): [Left knee degenerative joint disease] Estimated blood loss: [25 mL] Specimen(s) removed: [N/A] Post-operative diagnosis: [Left knee degenerative joint disease]
--- NOTE | 2024-01-07 13:54 | PM.PACU ---
PACU note Narrative: Patient is a 73-year-old female just underwent left total knee arthroplasty. Pt transferred to PACU in stable condition. Dressing is dry. pt is awake and alert. pt can wiggle toes and plantarflex and dorsiflex foot. pt able to perform straight leg raise, Femoral nerve intact. Distal pulses are palpable toes are warm and well-perfused. Cap refill is normal and under 2 seconds. Sensation to foot is intact. Pain is controlled. Exam: awake Disposition: admitted
--- NOTE | 2024-01-07 14:40 | ANE.PACU2 ---
Inpatient post-anesthesia follow up: Airway intact: Yes Vital signs: Temperature 97 F Pulse Rate 68 Respiratory Rate 16 Blood Pressure 158/70 Pulse Oximetry 95 Oxygen Delivery Me thod Room Air Oxygen Flow Rate Fraction of Inspir ed Oxygen Hydration adequate: Yes Nausea and vomiting: No Pain level: 1 Mental status: Baseline
[2024-01-07] MEDS: lactated ringers 1,000 ML 100 ML IV (15:19)
[2024-01-07] MEDS: oxyCODONE 5 mg IR Tab/Cap PO (16:11)
--- NOTE | 2024-01-07 16:12 | P.CONIM_ITS ---
Providers/Reason For Consult 2 Consulting Physician/Specialty*: Orthopedic surgery. Reason for Consult*: Medical management. Attending Physician: Wm Gutierrez DO Primary Care Provider: Curry Brizuela DO History of Present Illness History of Present Illness Pleasant 73-year-old lady with history of CAD, DM2, HTN, HLD, ZAYNAB, carotid stenosis, underwent left robotic assisted TKA due to degenerative joint disease, EBL 25 mL, she reports she is doing well postoperatively. The knee is letting her know about itself, but she has so far been able to reposition to try to get comfortable. She denies any chest pain or pressure. No trouble breathing. She denies any other recent issues prior to surgery. She has not taken any of her home medications since Sunday. Review of Systems 2 Const: Denies: fever(s), chills, body aches or malaise ENMT: Denies: throat pain Card: Denies: chest pain, edema, pre-syncope or dyspnea on exertion Resp: Denies: dyspnea, productive cough, change in phlegm color or hemoptysis GI: Denies: abdominal pain, nausea, vomiting, diarrhea, constipation, hematochezia or melena : Denies: flank pain, urinary frequency or hematuria Musc: Denies: back pain, joint swelling or joint redness Skin/Breast: Denies: rash or new lesions Neuro: Denies: headache(s), dizziness or confusion Medications/Allergies Home Medications Medication Instructions Recorded Confirmed Last Taken Type omeprazole 40 mg capsule,delayed 40 mg PO DAILY 06/24/19 01/07/24 01/06/24 History release rosuvastatin 20 mg tablet 20 mg PO DAILY 06/24/19 01/04/24 01/04/24 History aspirin 325 mg tablet 325 mg PO DAILY 05/25/20 01/04/24 01/01/24 History methimazole 5 mg tablet 2.5 mg PO Q48H 11/22/20 01/07/24 01/05/24 History metformin 500 mg tablet 500 mg PO QPM 04/01/21 01/07/24 01/05/24 History losartan 50 mg tablet 50 mg PO DAILY #90 tabs 02/21/23 01/07/24 01/06/24 Rx medial left knee salesforce trainer #1 ea 10/25/23 10/25/23 Unknown Rx medial left salesforce trainer brace #1 ea 10/25/23 10/25/23 Unknown Rx meloxicam 15 mg tablet 15 mg PO DAILY 01/04/24 01/07/24 12/25/23 History Allergies Allergy/AdvReac Type Severity Reaction Status Date / Time sulfamethoxazole Allergy Unknown Alicia Verified 12/25/23 12:58 [From Bactrim] Lip/Tongue/Throat trimethoprim [From Bactrim] Allergy Unknown Alicia Verified 12/25/23 12:58 Lip/Tongue/Throat Current Medications Generic Name Dose Route Start Last Admin Trade Name Freq PRN Reason Stop Dose Admin Acetaminophen 1,000 mg in 100 mls @ 400 mls/hr 01/07/24 14:55 01/07/24 15:20 Acetaminophen IV 01/08/24 07:09 400 mls/hr Q8H FRANCES Administration Lactated Ringer's 1,000 mls @ 100 mls/hr 01/07/24 14:55 01/07/24 15:19 Lactated Ringers IV 100 mls/hr .Q10H FRANCES Administration Oxycodone HCl 5 mg 01/07/24 14:55 01/07/24 16:11 Oxycodone 5 Mg Ir Tab/Cap PO 5 mg Q4H PRN Administration MODERATE PAIN PFSH Acute 2 PFSH: Medical History Urinary tract infection Osteoarth NOS-up/arm Myocardial infarction ASHD (arteriosclerotic heart disease) HTN (hypertension) Dyslipidemia Diabetes Fibromyalgia Carotid stenosis, bilateral ZAYNAB (obstructive sleep apnea) Surgical History S/P angioplasty with stent Family History Brother CAD (coronary artery disease) Diabetes Sister CAD (coronary artery disease) Cancer CERVICAL Diabetes Hypertension Father CAD (coronary artery disease) Mother CAD (coronary artery disease) Stroke Diabetes Hypertension Grandfather Diabetes PATERNAL Grandmother Diabetes MATERNAL Social History Smoking and tobacco/nicotine status: never used tobacco/nicotine Household members: spouse Marital status: Current gender identity: Female Vitals/I&O/Wt Last Vital Signs Temp 97 F L 01/07/24 14:03 Pulse 68 01/07/24 14:03 Resp 16 01/07/24 16:11 BP 158/70 01/07/24 14:03 Pulse Ox 95 01/07/24 14:03 O2 Del Method Room Air 01/07/24 15:38 01/07/24 01/07/24 01/07/24 06:59 14:59 22:59 Intake Total 1700 / 1700 Output Total 125 / 125 Balance 1575 / 1575 Weight last 48 hrs Weight 52.163 kg Physical Exam 2 Narrative: Accompanied by her . Const: COMMON NORMALS: patient oriented x3 and alert GENERAL APPEARANCE: c ooperative ORIENTATION/CONSCIOUSNESS: Yes awake HENMT: COMMON NORMALS: oropharynx normal Neck/C-Spine: COMMON NORMALS: no JVD Resp: COMMON NORMALS: normal respiratory effort and clear to auscultation bilaterally AUSCULTATION: clear to auscultation bilaterally Cardio: COMMON NORMALS: no JVD, regular rhythm, S1 normal heart sound present, S2 normal heart sound present and No murmurs present (Cardio) RHYTHM: regular rhythm HEART SOUNDS: S1 normal heart sound present and S2 normal heart sound present GI: COMMON NORMALS: Normal to inspection, nondistended, normoactive bowel sounds present, Soft to palpation and non-tender PALPATION: Yes Soft to palpation Extremity: COMMON NORMALS: no joint enlargement and no pedal edema OTHER: LLE in postoperative dressing. Neuro: COMMON NORMALS: patient oriented x3 and moves all extremities S ENSORIUM/ORIENTATION: Yes alert Skin: COMMON NORMALS: no rashes or lesions noted GENERAL SKIN EXAM: no rashes or lesions noted Urinary Catheter Management: Pineda: Cath Placed During This Visit: yes Urinary Catheter Date of Insertion: 01/07/24 Urinary Catheter Time of Insertion: 07:46 Data 01/07/24 10:16 01/07/24 10:16 A&P Assessment and plan (1) Diabetes: Reviewed blood glucose. Discussed with her and her . Hold metformin while in the hospital. Insulin sliding scale. Monitor POC due to risk of hypoglycemia. Consistent carbohydrate diet. Resume metformin at discharge. (2) ASHD (arteriosclerotic heart disease): Continue aspirin, statin. (3) HTN (hypertension): Continue losartan. Qualifiers: Hypertension type: essential hypertension Qualified Code(s): I10 - Essential (primary) hypertension (4) Carotid stenosis, bilateral: Continue aspirin, statin, losartan. Monitor blood pressures. (5) ZAYNAB (obstructive sleep apnea): States that she wears CPAP but that they are fighting . (6) Status post left knee replacement: Reviewed vitals, CBC, BMP, knee x-ray, orthopedic surgery note. Discussed with orthopedic surgery. EBL 25 mL. Recheck CBC. She is going to be started on Eliquis DVT prophylaxis tomorrow by orthopedics. She is aware of bleeding risk, to watch out for any signs of concerning bleeding. PT assessment. Discharge planning, if all goes well plans tentatively to return home. Pineda catheter to be discontinued prior to discharge. Add acetaminophen as needed for mild to moderate pain. Has Toradol, tramadol available. IV hydromorphone for severe/breakthrough pain. Consult Attestations 2 Medical Necessity Statement: Continue hospitalization for assessment of management after left TKA in a lady with underlying comorbidities as above. and High MDM includes amount and/or complexity of data reviewed/ordered [ previous or external records, resulted lab(s)/test(s), ordered lab(s)/test(s) and other healthcare professional discussion] and described risk of complication, morbidity or mortality of management as documented Diagnoses Diabetes E11.9 ASHD (arteriosclerotic heart disease) I25.10 Essential hypertension I10 Hypertension type: essential hypertension Carotid stenosis, bilateral I65.23 ZAYNAB (obstructive sleep apnea) G47.33 Status post left knee replacement Z96.652
[2024-01-07 17:28] LABS: Glucose Point of Care 352 mg/dL (70-110)
[2024-01-07] MEDS: chlorhexidine gluconate 0.12% Btl 473 mL 30 ML MUCOUS MEM ×2 (17:40→20:56)
[2024-01-07] MEDS: docusate sodium 100 mg Capsule PO (17:40)
[2024-01-07] MEDS: iron polysaccharide complex 150 mg Capsule PO (17:40)
[2024-01-07] MEDS: calcium carb-vit d 600mg/400unit 1 Tablet 1 EACH PO (17:40)
[2024-01-07] MEDS: sennosides-docusate Tablet 2 TAB PO (17:41)
[2024-01-07] MEDS: insulin lispro 100 unit/1 mL SUBCUT (17:41)
[2024-01-07] MEDS: mupirocin oint 22 gm 1 APPLIC NASAL (17:41)
[2024-01-07] MEDS: tranexamic acid 1,000 MG/100 ML PREMIX 600 MG IV (18:44)
[2024-01-07] MEDS: TRAMadol 50 mg Tablet PO (20:56)
[2024-01-07 21:24] LABS: Glucose Point of Care 125 mg/dL (70-110)
[2024-01-08] MEDS: lactated ringers 1,000 ML 100 ML IV (00:40)
[2024-01-08 01:27] VITALS: BP 157/62; PULSE 70; RESP 16; TEMP 36.6; O2SAT 98
[2024-01-08 03:16] VITALS: RESP 17
[2024-01-08] MEDS: ceFAZolin 2,000 MG in sodium chloride 0.9% (plus) 50 ML 100 MG IV (03:16)
[2024-01-08] MEDS: oxyCODONE 5 mg IR Tab/Cap PO ×2 (03:16→08:02)
[2024-01-08 04:00] VITALS: BP 166/63; PULSE 66; RESP 16; TEMP 36.4; O2SAT 98
[2024-01-08 05:01] LABS: Basophils # 0.1 10^3/uL (0.0-0.1); Basophils % 0.4 %; Eosinophils % 0.1 %; Hematocrit 26.1 % (36-47); Lymphocytes # 1.2 10^3/uL (0.8-4.8); Lymphocytes % 9.9 %; Mean Corpuscular HGB Conc 32.2 g/dL (30-55); Mean Corpuscular Hemoglobin 26.1 pg (27-33); Mean Corpuscular Volume 81.1 fl (85-98); Mean Platelet Volume 11.2 fL (7.4-10.4); Monocytes # 0.8 10^3/uL (0.2-0.9); Monocytes % 6.1 %; Neutrophils # 10.37 10^3/uL (1.8-7.7); Neutrophils % 83.2 %; Nucleated Red Blood Cells % 0 %; Platelet Count 174 10^3/cmm (157-399); Red Blood Count 3.22 10^6/uL (3.85-5.65); Red Cell Distribution Width 15.7 % (12.1-15.1); White Blood Count 12.46 10^3/uL (3.29-11.43)
[2024-01-08 05:17] LABS: Anion Gap 12.3 (5-19); Blood Urea Nitrogen 10 mg/dL (8-23); Calcium 8.6 mg/dL (8.5-10.5); Carbon Dioxide 23 mmol/L (22-29); Chloride 107 mmol/L (98-107); Creatinine Clr Calc Pharmacy 52.4868; Glucose 144 mg/dL (65-115); Osmolality Calculated 288 mOsm/kg (285-295); Potassium 4.3 mmol/L (3.5-5.1); Sodium 138 mmol/L (136-145)
[2024-01-08] MEDS: acetaminophen 1,000 MG/100 ML PIGGYBACK 400 MG IV (06:43)
[2024-01-08 06:52] LABS: Glucose Point of Care 113 mg/dL (70-110)
[2024-01-08] MEDS: apixaban 5 mg Tablet 2.5 MG PO (07:37)
[2024-01-08] MEDS: docusate sodium 100 mg Capsule PO (07:38)
[2024-01-08] MEDS: multivitamin therapeutic Tablet 1 TAB PO (07:38)
[2024-01-08] MEDS: iron polysaccharide complex 150 mg Capsule PO (07:38)
[2024-01-08] MEDS: calcium carb-vit d 600mg/400unit 1 Tablet 1 EACH PO (07:38)
[2024-01-08] MEDS: pantoprazole DR 40 mg Tablet PO (07:38)
[2024-01-08] MEDS: mupirocin oint 22 gm 1 APPLIC NASAL (07:42)
[2024-01-08] MEDS: chlorhexidine gluconate 0.12% Btl 473 mL 30 ML MUCOUS MEM (07:42)
[2024-01-08 08:02] VITALS: RESP 16
[2024-01-08] MEDS: sennosides-docusate Tablet 2 TAB PO (08:02)
--- NOTE | 2024-01-08 08:09 | P.DS_ITS ---
Discharge Providers Date of Admission: 01/07/24 14:17 Date of Discharge: January 08, 2024 Attending Provider at Admission: Wm Gutierrez DO Attending Provider at Discharge: Wm Gutierrez DO Consults: Dr. Canales Primary Care Provider: Curry Brizuela DO Diagnoses at Discharge Discharge Diagnosis (1) Diabetes: Status: Acute (2) ASHD (arteriosclerotic heart disease): Status: Acute (3) HTN (hypertension): Status: Acute Qualifiers: Hypertension type: essential hypertension Qualified Code(s): I10 - Essential (primary) hypertension (4) Carotid stenosis, bilateral: Status: Acute (5) ZAYNAB (obstructive sleep apnea): Status: Acute (6) Status post left knee replacement: Status: Acute Reason for Visit Reason for Visit: Brief History: Status post left TKA Hospital Course Hospital Course Patient presented to the preoperative holding area with plan for left total knee arthroplasty after patient has been worked up in the outpatient setting for failed conservative treatment of left knee degenerative joint disease. Once cleared by anesthesia for surgery patient subsequently was taken back to the operative suite underwent anesthesia per anesthesia department and then subsequently underwent a left total knee arthroplasty. Procedure was performed without any complications patient was taken to PACU in stable condition patient recovered well in PACU and then was admitted to the floor postoperatively internal medicine was consulted and on board for medical management and assistance with care. Patient received appropriate PT/OT, postoperative antibiotics, postoperative TXA, pain control, postoperative DVT prophylaxis. Elevation and ice. Patient encouraged for knee range of motion allowed weightbearing as tolerated to the operative lower extremity. Dressing was changed as needed, labs were monitored daily. Patient recovered well postoperatively and worked well and progressed well with therapy. Postoperative day 1 she did have a drop in her hemoglobin and her blood pressures have been stable she has been asymptomatic with no evidence of lightheadedness or orthostatic issues. At this point in time she is ready for discharge home. It was determined on postoperative day 1 the patient was stable for discharge from an orthopedic standpoint, as well as reviewed by internal medicine and contacted patient on just close follow-up just given her drop in hemoglobin noted and she will be started on a Eliquis today just for DVT prophylaxis. Patient will have follow-up with primary care provider. Patient was comfortable with discharge and plan was discharged home. Patient received appropriate discharge instructions as well as pain medication and DVT prophylaxis postoperatively. Given appropriate instructions for dressing management. Patient will follow-up with Dr. Gutierrez/orthopedics in the office in 2 weeks. All questions answered. Understand if there is any issues questions or concerns and contact the office. Physical Exam Narrative: Examination left lower extremity: Examination left lower extremity demonstrates patient's dressings on in place good seal normal postoperative swelling about the knee as well as diffuse tenderness palpation. Calf soft nontender compartment soft compressible. Distal pulses are palpable toes warm well-perfused with cap refill less than 2 seconds and a plantarflex and dorsiflex ankle as well as wiggle toes. Urinary Catheter Management: Pineda: Cath Placed During This Visit: yes, but has since been removed by the nurse Reason for Continuing Indwelling Catheter: Decision to DC Catheter Urinary Catheter Date of Insertion: 01/07/24 Urinary Catheter Time of Insertion: 07:46 Date Urinary Catheter Removed: 01/07/24 Time Urinary Catheter Discontinued: 18:00 Discharge Data Studies Completed and Pending Completed Studies During Hospitalization Category Date Time Status XR knee LT 1-2V 99390 Routine Exams 01/07/24 13:37 Completed Pending at discharge Category Date Time Status Basic Metabolic Panel AM LABS Lab 01/09/24 04:00 Ordered Basic Metabolic Panel AM LABS Lab 01/10/24 04:00 Ordered Complete Blood Count w/Auto AM LABS Lab 01/09/24 04:00 Ordered Complete Blood Count w/Auto AM LABS Lab 01/10/24 04:00 Ordered Radiology Impressions Knee X-Ray 01/07/24 13:37 IMPRESSION: Total left knee arthroplasty without abnormality. Laboratory Results WBC 12.46 10^3/uL (3.29-11.43) H 01/08/24 04:40 RBC 3.22 10^6/uL (3.85-5.65) L 01/08/24 04:40 Hgb 8.40 g/dL (11.27-16.99) L 01/08/24 04:40 Hct 26.1 % (36-47) L 01/08/24 04:40 MCV 81.1 fl (85-98) L 01/08/24 04:40 MCH 26.1 pg (27-33) L 01/08/24 04:40 MCHC 32.2 g/dL (30-55) 01/08/24 04:40 RDW 15.7 % (12.1-15.1) H 01/08/24 04:40 Plt Count 174 10^3/cmm (157-399) 01/08/24 04:40 MPV 11.2 fL (7.4-10.4) H 01/08/24 04:40 Neut % (Auto) 83.2 % 01/08/24 04:40 Lymph % (Auto) 9.9 % 01/08/24 04:40 [place] % (Auto) 6.1 % 01/08/24 04:40 Eos % (Auto) 0.1 % 01/08/24 04:40 Baso % (Auto) 0.4 % 01/08/24 04:40 Neut # (Auto) 10.37 10^3/uL (1.8-7.7) H 01/08/24 04:40 Lymph # (Auto) 1.2 10^3/uL (0.8-4.8) 01/08/24 04:40 [place] # (Auto) 0.8 10^3/uL (0.2-0.9) 01/08/24 04:40 Eos # (Auto) 0.0 10^3/uL (0.0-0.8) 01/08/24 04:40 Baso # (Auto) 0.1 10^3/uL (0.0-0.1) 01/08/24 04:40 Nucleated RBC % (auto) 0 % 01/08/24 04:40 Nucleated RBCs # 0.0 /100WBC 01/08/24 04:40 Sodium 138 mmol/L (136-145) 01/08/24 04:40 Potassium 4.3 mmol/L (3.5-5.1) 01/08/24 04:40 Chloride 107 mmol/L (98-107) 01/08/24 04:40 Carbon Dioxide 23 mmol/L (22-29) 01/08/24 04:40 Anion Gap 12.3 (5-19) 01/08/24 04:40 BUN 10 mg/dL (8-23) 01/08/24 04:40 Creatinine 0.7 mg/dL (0.5-0.9) 01/08/24 04:40 GFR Calculation Not Reportable 01/08/24 04:40 Glucose 144 mg/dL (65-115) H 01/08/24 04:40 POC Glucose 113 mg/dL (70-110) H 01/08/24 06:47 Calculated Osmolality 288 mOsm/kg (285-295) 01/08/24 04:40 Calcium 8.6 mg/dL (8.5-10.5) 01/08/24 04:40 Blood Type O Positive 01/07/24 10:16 Rho(D) Type Rh positive 01/07/24 10:16 Antibody Screen Negative 01/07/24 10:16 Vitals Last Vital Signs Temp 97.6 F 01/08/24 04:00 Pulse 66 01/08/24 04:00 Resp 16 01/08/24 08:02 BP 166/63 01/08/24 04:00 Pulse Ox 98 01/08/24 04:00 O2 Del Method Room Air 01/07/24 21:50 Discharge Plan Discharge Patient Disposition: Home Health Service Condition: Stable Prescriptions: New Eliquis 2.5 mg tablet 2.5 mg PO BID 14 Days Qty: 28 0RF ondansetron 4 mg tablet,disintegrating 4 mg PO Q8H PRN (Reason: nausea and vomiting) 3 Days Qty: 9 0RF oxycodone 5 mg tablet 5 mg PO Q6H PRN (Reason: pain postop) 7 Days Qty: 28 0RF Calcium 600 + D(3) 600 mg-10 mcg (400 unit) tablet 1 tab PO DAILY 30 Days Qty: 30 0RF Continued metformin 500 mg tablet 500 mg PO QPM omeprazole 40 mg capsule,delayed release(DR/EC) 40 mg PO DAILY rosuvastatin 20 mg tablet 20 mg PO DAILY methimazole 5 mg tablet 2.5 mg PO Q48H losartan 50 mg tablet 50 mg PO DAILY Qty: 90 3RF Held aspirin 325 mg tablet 325 mg PO DAILY Hold Instructions: Resume on 01/22/24. meloxicam 15 mg tablet 15 mg PO DAILY Hold Instructions: Resume on 01/22/24. Rx Instructions: TAKE 1 TABLET BY MOUTH EVERY DAY FOR LEFT KNEE OSTEOARTHRITIS No Action (DME) medial left knee robotype operator See Rx Instructions .ROUTE .MEDSUPPLY Qty: 1 0RF Rx Instructions: As directed (DME) medial left robotype operator brace See Rx Instructions .Route .MEDSUPPLY Qty: 1 0RF Rx Instructions: As directed (DME) Walker See Rx Instructions .Route .MEDSUPPLY Qty: 1 0RF Rx Instructions: As directed Discharge Orders: Discharge Order (Routine); Ordered 01/08/24 Ordered By: Wm Gutierrez Referrals: [facility] ([facility]) [Outside] Curry Brizuela DO [Primary Care Provider] - 4-7 days Wm Gutierrez DO [Physician] - 01/22/24 1:15 pm (Your post op appointment with Dr. Gutierrez is on 01/22/2024. Please arrive at 1:15pm. ) Discharge Diet: Regular Discharge Activity: Limit activity as instructed and Use walker/crutches as instructed Patient Instructions: Acute Wound Care (DC), Knee Arthroscopy (DC), OB Discharge Report, Opioid Safety, Post Anesthesia Care Activity Restrictions/Additional Instructions: Orthopedic discharge instructions Jennifer Dressing--Keep dressing on and dry. After 3 days you can remove some of the dressing and shower. disconnect battery pack when showering. Jennifer dressing will stay on until follow up appt in 2 weeks. The battery pack for the dressing will at 5-7 days. Battery pack can be removed and discarded once batteries . May leave jennifer bandage on for 1 additional week for a total of 2 weeks after the battery dies and is removed. Patient may weight-bear as tolerate to the operative extremity Utilize crutches as needed Encourage knee range of motion Ice and elevate as needed for pain and swelling Take pain medication as prescribed Take antinausea medication as needed Pain medication can cause constipation. take [id number] stool softeners and or MiraLAX. Take prescribed Eliquis twice daily for the next 14 days for blood clot prevention May supplement for pain with ibuprofen paxl-gwi-gofruji as needed No baths or soaks Follow-up in the orthopedic office in 2 weeks Contact the office for any questions or concerns Discharge Attestations Time Spent in Discharge Care*: less than 30 min Quality Metrics Clinical Quality Measures [ No reported AMI, CVA or VTE this stay] Coding Level of Care Code Acute Code for Chg Fwd Diagnoses Diabetes E11.9 ASHD (arteriosclerotic heart disease) I25.10 Essential hypertension I10 Hypertension type: essential hypertension Carotid stenosis, bilateral I65.23 ZAYNAB (obstructive sleep apnea) G47.33 Status post left knee replacement Z96.652
[2024-01-08 10:30] VITALS: BP 176/78; PULSE 58; RESP 16; TEMP 36.5
[2024-01-08 12:02] LABS: Ferritin 19 ng/mL (15-150); Iron 34 ug/dL (37-145); Percent Saturation 12.8 % (20-50); Total Iron Binding Capacity 264 mcg/dl; Unsaturated Iron Binding 230 ug/dL (112-347)
--- NOTE | 2024-01-08 12:44 | P.PN_ITS ---
Subjective 2 Subjective: I came to see her this morning but was told she had already discharged. Vitals/I&O/Wt Last Vital Signs Temp 97.7 F 01/08/24 10:30 Pulse 58 L 01/08/24 10:30 Resp 16 01/08/24 10:30 BP 176/78 01/08/24 10:30 Pulse Ox 98 01/08/24 04:00 O2 Del Method Room Air 01/07/24 21:50 01/07/24 01/08/24 01/08/24 22:59 06:59 14:59 Intake Total 150 / 1850 1035 / 2885 400 / 400 Output Total 1150 / 1275 375 / 1650 Balance -1000 / 575 660 / 1235 400 / 400 Weight last 48 hrs Weight 52.163 kg Weight 52.163 kg Physical Exam 2 Urinary Catheter Management: Pineda: Cath Placed During This Visit: yes, but has since been removed by the nurse Reason for Continuing Indwelling Catheter: Decision to DC Catheter Urinary Catheter Date of Insertion: 01/07/24 Urinary Catheter Time of Insertion: 07:46 Date Urinary Catheter Removed: 01/07/24 Time Urinary Catheter Discontinued: 18:00 Data 01/08/24 04:40 01/08/24 04:40 A&P Assessment and plan (1) Anemia: Reviewed vitals, CBC this morning, hemoglobin down from 11.5-8.4, 3 point decreased. No bleeding noted while in the hospital. Only 25 mL reported on surgical blood losses. I requested iron studies, requested repeat hemoglobin for noon. When I came to see her she had already discharged. Speaking with her on the phone we discussed regarding iron deficiency anemia. She is to continue on PPI. She will have a repeat blood count tomorrow and is to follow-up with primary care provider regarding further investigation for iron deficiency anemia which as per discussion with her she will need endoscopic evaluation for. She is also to avoid any NSAIDs. She states she no longer takes meloxicam. She is on anticoagulation prophylaxis started by orthopedics. Discussed with her risk of further bleeding, potential risk of life-threatening bleeding with anticoagulation, risk of DVT, and she states she knows to watch out for any symptoms of GI bleeding, dark stools, hematochezia, or any other bleeding for which she is going to seek medical attention immediately. (2) Diabetes: Reviewed blood glucose. Discussed with her and her . Hold metformin while in the hospital. Insulin sliding scale. Monitor POC due to risk of hypoglycemia. Consistent carbohydrate diet. Resume metformin at discharge. (3) ASHD (arteriosclerotic heart disease): Continue aspirin, statin. (4) HTN (hypertension): Continue losartan. Qualifiers: Hypertension type: essential hypertension Qualified Code(s): I10 - Essential (primary) hypertension (5) Carotid stenosis, bilateral: Had been aspirin, statin, losartan. Monitor blood pressures. Discharged on Eliquis with aspirin on hold. Resume aspirin once she is off anticoagulation. (6) ZAYNAB (obstructive sleep apnea): States that she wears CPAP but that they are fighting . (7) Status post left knee replacement: Has been discharged. Reviewed orthopedic note. Discussed with case resolution specialist, has been set up with home health. Attestations 2 Medical Necessity Statement*: Discharged. Coding Level of Care Code Acute Code for [facility] Fwd Diagnoses Anemia D64.9 Diabetes E11.9 ASHD (arteriosclerotic heart disease) I25.10 Essential hypertension I10 Hypertension type: essential hypertension Carotid stenosis, bilateral I65.23 ZAYNAB (obstructive sleep apnea) G47.33 Status post left knee replacement Z96.652
== END 2024-01-08 10:35 | disposition home health service (06) ==
LOC: OBGYN 14:18
PROVIDERS: Internal Medicine; Physician Assistant; Admitting Provider Student in an Organized Health Care Education/Training Program; PCP Electrodiagnostic Medicine; Visit Provider Student in an Organized Health Care Education/Training Program
PROC: 8E0Y0CZ Robotic Assisted Procedure of Lower Extremity, Open Approach (ICD-10-PCS; CPT 27447; principal; 2024-01-07 12:10)
DX: M17.12 Unilateral primary osteoarthritis, left knee (principal); E11.9 Type 2 diabetes mellitus without complications; I25.10 Atherosclerotic heart disease of native coronary artery without angina pectoris; I65.23 Occlusion and stenosis of bilateral carotid arteries; G47.33 Obstructive sleep apnea (adult) (pediatric); I10 Essential (primary) hypertension; E78.5 Hyperlipidemia, unspecified; M79.7 Fibromyalgia; I25.2 Old myocardial infarction; Z79.82 Long term (current) use of aspirin
CPT/HCPCS: 20985; 27447; 36415; 36416; 51702; 73560; 80048; 82728; 82962; 83540; 83550; 85025; 86850; 86900; 96372; 97110; 97116; 97161; 97165; C1776; G0378; J0131; J0171; J0690; J1100; J1815; J1885; J2371; J2704; J2795; J3010; J3370; J7030; J7120

== ENCOUNTER 2024-01-09 11:12 | Outpatient (CLI) | payer MEDICARE, SELFPAY ==
[2024-01-09 11:55] LABS: Basophils # 0.1 10^3/uL (0.0-0.1); Basophils % 0.4 %; Eosinophils % 0.1 %; Hematocrit 28.4 % (36-47); Lymphocytes # 1.2 10^3/uL (0.8-4.8); Lymphocytes % 10.7 %; Mean Corpuscular HGB Conc 31.7 g/dL (30-55); Mean Corpuscular Hemoglobin 25.6 pg (27-33); Mean Corpuscular Volume 80.9 fl (85-98); Mean Platelet Volume 11.3 fL (7.4-10.4); Monocytes # 0.9 10^3/uL (0.2-0.9); Monocytes % 7.9 %; Neutrophils # 8.97 10^3/uL (1.8-7.7); Neutrophils % 80.3 %; Nucleated Red Blood Cells % 0 %; Platelet Count 176 10^3/cmm (157-399); Red Blood Count 3.51 10^6/uL (3.85-5.65); Red Cell Distribution Width 15.9 % (12.1-15.1); White Blood Count 11.17 10^3/uL (3.29-11.43)
[2024-01-09 12:12] LABS: Anion Gap 15.2 (5-19); Blood Urea Nitrogen 8 mg/dL (8-23); Carbon Dioxide 27 mmol/L (22-29); Chloride 98 mmol/L (98-107); Glucose 229 mg/dL (65-115); Osmolality Calculated 288 mOsm/kg (285-295); Potassium 4.2 mmol/L (3.5-5.1); Sodium 136 mmol/L (136-145)
== END 2024-01-09 11:13 | disposition home or self-care (01) ==
LOC: LAB 11:13
PROVIDERS: PCP Electrodiagnostic Medicine; Visit Provider Student in an Organized Health Care Education/Training Program
DX: Z96.652 Presence of left artificial knee joint (principal)
CPT/HCPCS: 36415; 80048; 85025

== ENCOUNTER → 2024-01-22 12:58 | Outpatient (BNVA) | payer MEDICARE, SELFPAY | PROVIDERS: PCP Electrodiagnostic Medicine; Visit Provider Physician Assistant | DX: Z96.652 Presence of left artificial knee joint (principal); M25.562 Pain in left knee; M25.561 Pain in right knee | CPT/HCPCS: 73560; 73565; 99024 ==

== ENCOUNTER 2024-01-29 12:48 | Outpatient (RCR) | payer MEDICARE, SELFPAY | END 2024-02-28 23:59 | disposition home or self-care (01) | LOC: SPT 12:48 | PROVIDERS: PCP Electrodiagnostic Medicine; Visit Provider Student in an Organized Health Care Education/Training Program | DX: Z47.1 Aftercare following joint replacement surgery (principal); Z96.652 Presence of left artificial knee joint | CPT/HCPCS: 97110; 97161 ==

== ENCOUNTER → 2024-02-07 11:30 | Outpatient (BNVA) | payer MEDICARE, SELFPAY | PROVIDERS: PCP Electrodiagnostic Medicine; Visit Provider Internal Medicine Cardiovascular Disease | DX: I10 Essential (primary) hypertension (principal); I25.10 Atherosclerotic heart disease of native coronary artery without angina pectoris; E78.5 Hyperlipidemia, unspecified; E13.9 Other specified diabetes mellitus without complications; Z79.84 Long term (current) use of oral hypoglycemic drugs; I65.23 Occlusion and stenosis of bilateral carotid arteries; Z87.891 Personal history of nicotine dependence; I25.2 Old myocardial infarction; G47.33 Obstructive sleep apnea (adult) (pediatric); Z99.89 Dependence on other enabling machines and devices | CPT/HCPCS: 99214 ==

== ENCOUNTER → 2024-02-23 15:27 | Outpatient (BNVA) | payer MEDICARE, SELFPAY | PROVIDERS: PCP Electrodiagnostic Medicine; Visit Provider Emergency Medicine | DX: R39.9 Unspecified symptoms and signs involving the genitourinary system (principal) | CPT/HCPCS: 81000 ==

== ENCOUNTER 2024-02-29 06:00 | Outpatient (RCR) | payer MEDICARE, SELFPAY | END 2024-02-29 23:59 | disposition home or self-care (01) | LOC: SPT 06:00 | PROVIDERS: PCP Electrodiagnostic Medicine; Visit Provider Student in an Organized Health Care Education/Training Program | DX: Z47.1 Aftercare following joint replacement surgery (principal); Z96.652 Presence of left artificial knee joint | CPT/HCPCS: 97110 ==

== ENCOUNTER → 2024-03-04 09:49 | Outpatient (BNVA) | payer MEDICARE, SELFPAY | PROVIDERS: PCP Electrodiagnostic Medicine; Visit Provider Physician Assistant | DX: Z96.652 Presence of left artificial knee joint (principal) | CPT/HCPCS: 73560; 73565; 99024 ==

== ENCOUNTER → 2024-04-01 14:48 | Outpatient (BNVA) | payer MEDICARE, SELFPAY | PROVIDERS: PCP Electrodiagnostic Medicine; Visit Provider Physician Assistant | DX: Z96.652 Presence of left artificial knee joint (principal) | CPT/HCPCS: 99213 ==

== ENCOUNTER → 2024-05-15 09:53 | Outpatient (BNVA) | payer MEDICARE, SELFPAY | PROVIDERS: PCP Electrodiagnostic Medicine; Visit Provider Physician Assistant | DX: Z96.652 Presence of left artificial knee joint (principal); M25.562 Pain in left knee; W19.XXXA Unspecified fall, initial encounter | CPT/HCPCS: 73560; 73565; 99213 ==

== ENCOUNTER → 2024-07-02 08:53 | Outpatient (BNVA) | payer MEDICARE, SELFPAY | PROVIDERS: PCP Electrodiagnostic Medicine; Visit Provider Student in an Organized Health Care Education/Training Program | DX: Z96.652 Presence of left artificial knee joint (principal) | CPT/HCPCS: 73560; 73565; 99213 ==

== ENCOUNTER 2024-08-22 09:16 | Outpatient (CLI) | payer MEDICARE, SELFPAY ==
--- NOTE | 2024-08-22 09:18 | MM_ITS ---
WS: [id number] BILATERAL SCREENING DIGITAL TOMOSYNTHESIS MAMMOGRAM WITH CAD HISTORY: SCREENING COMPARISON: 09/06/2021, 04/03/2019 Bilateral CC and MLO views with tomosynthesis and synthetic mammography submitted. Computer aided detection analyzed. Breast composition: There are scattered areas of fibroglandular density. No suspicious masses, microcalcifications or architectural distortion. Benign calcifications LEFT breast. MM/MM scr BI tomosynthesis [id number] IMPRESSION: BI-RADS: 2 - Benign. FOLLOW UP: 1 Year Follow-up
== END 2024-08-22 09:17 | disposition home or self-care (01) ==
PROVIDERS: PCP Electrodiagnostic Medicine; Visit Provider Electrodiagnostic Medicine
DX: Z12.31 Encounter for screening mammogram for malignant neoplasm of breast (principal); R92.323 Mammographic fibroglandular density, bilateral breasts; R92.1 Mammographic calcification found on diagnostic imaging of breast
CPT/HCPCS: 77063; 77067

== ENCOUNTER → 2025-01-06 09:08 | Outpatient (BNVA) | payer MEDICARE, SELFPAY | PROVIDERS: PCP Electrodiagnostic Medicine; Visit Provider Physician Assistant | DX: Z96.652 Presence of left artificial knee joint (principal) | CPT/HCPCS: 73560; 73565; 99213 ==

== ENCOUNTER → 2025-01-14 13:37 | Outpatient (BNVA) | payer MEDICARE, SELFPAY | PROVIDERS: PCP Electrodiagnostic Medicine; Visit Provider Dermatology | DX: B00.1 Herpesviral vesicular dermatitis (principal); D18.01 Hemangioma of skin and subcutaneous tissue; S80.862A Insect bite (nonvenomous), left lower leg, initial encounter; X58.XXXA Exposure to other specified factors, initial encounter; D48.5 Neoplasm of uncertain behavior of skin; L57.0 Actinic keratosis | CPT/HCPCS: 11102; 17000; 99203 ==

== ENCOUNTER → 2025-02-02 14:45 | Outpatient (BNVA) | payer MEDICARE, SELFPAY | PROVIDERS: PCP Electrodiagnostic Medicine; Visit Provider Internal Medicine Cardiovascular Disease | DX: I25.10 Atherosclerotic heart disease of native coronary artery without angina pectoris (principal); I10 Essential (primary) hypertension; E78.5 Hyperlipidemia, unspecified; I65.23 Occlusion and stenosis of bilateral carotid arteries; E11.9 Type 2 diabetes mellitus without complications; Z79.84 Long term (current) use of oral hypoglycemic drugs; Z95.5 Presence of coronary angioplasty implant and graft; I25.2 Old myocardial infarction | CPT/HCPCS: 99214 ==

== ENCOUNTER → 2025-02-04 15:14 | Outpatient (BNVA) | payer MEDICARE, SELFPAY | PROVIDERS: PCP Electrodiagnostic Medicine; Visit Provider Dermatology | DX: D48.5 Neoplasm of uncertain behavior of skin (principal) | CPT/HCPCS: 11642; 12052 ==

== ENCOUNTER 2025-02-19 10:55 | Outpatient (CLI) | payer MEDICARE, SELFPAY ==
--- NOTE | 2025-02-19 11:15 | USCV_ITS ---
Judith Wylie Age: 74 Gender: F : 1950 Exam Date: 02/19/2025 11:36 Ordering Phys: Pam Liu MD ([email or web address]) Technologist: Exam Location: [facility] [place]: occlusion Risk Factors: Previous Vascular Surgery: Right Brachial BP: / Left Brachial BP: / Right Left Velocity (cm/s) Spectral Plaque Velocity (cm/s) Spectral Plaque Syst/Diast Broadening Syst/Diast Broadening 89.30/ 15.40 Prox CCA 105.10/ 23.00 94.40/ 12.60 Mid CCA 104.30/ 22.80 96.20/ 16.20 Distal CCA 104.30/ 22.80 132.90/27.90 Prox ICA 122.60/ 29.50 105.70/21.70 Mid ICA 115.60/ 29.30 70.90/ 20.70 Distal ICA 103.30/ 23.00 173.90 ECA 166.40 1.40 ICA/CCA 1.20 Antegrade Vertebral Antegrade 57.80/ 11.90 cm/s 66.20/ 14.90 cm/s Tri Subclavian Tri 148.5 130.7 0 0 CONCLUSIONS Right ICA stenosis 50-69% at the lower end of range. Moderate atheromatous plaque right carotid bulb/ICA. Left ICA stenosis <50%. Moderate atheromatous plaque left carotid bulb/ICA. Intimal thickening in the common carotid arteries and internal carotid arteries bilaterally. Normal antegrade Doppler flow noted in the right vertebral artery. Normal antegrade Doppler flow noted in the left vertebral artery. Cristian Nowak MD (Electronically Signed) Final Date: 19 February 2025 16:53 S
== END 2025-02-19 10:56 | disposition home or self-care (01) ==
LOC: RAD 10:55
PROVIDERS: PCP Electrodiagnostic Medicine; Visit Provider Internal Medicine Cardiovascular Disease
DX: I65.23 Occlusion and stenosis of bilateral carotid arteries (principal)
CPT/HCPCS: 93880